=== PATIENT | female | born 1975 | race Caucasian/White ===

== ENCOUNTER 2023-06-17 10:27 | Outpatient (CLI) | payer OTHER | END 2023-06-17 10:29 | disposition home or self-care (01) | LOC: SONOGRAMA 10:27 | PROVIDERS: ATTEND Pathology Anatomic Pathology & Clinical Pathology | DX: D34 Benign neoplasm of thyroid gland (principal); E06.3 Autoimmune thyroiditis; E04.2 Nontoxic multinodular goiter ==